=== PATIENT | female | born 1945 | race Caucasian/White ===

== ENCOUNTER → 2025-08-15 09:54 | Outpatient (CLI) | payer MEDICARE, SELFPAY ==
--- NOTE | ~2025-08-15 | XR_ITS ---
EXAMINATION: XR foot RT 2V, 08/15/2025 11:25 DEVELOPER PROGRAMMER HISTORY: M32.9 COMPARISON: No comparisons available. Findings: No acute fracture or malalignment. Moderate degenerative changes of the distal interphalangeal joints, no erosions are identified Soft tissues unremarkable. Impression: No acute fracture or malalignment. Reviewed, dictated and finalized at location P. LOPER PROGRAMMER Impression: No acute fracture or malalignment.
--- NOTE | ~2025-08-15 | XR_ITS ---
EXAMINATION: XR sacroiliac joints min 3V, 08/15/2025 11:00 CUSHION WORKER HISTORY: M32.9 COMPARISON: No comparisons available. Findings: No acute fracture or malalignment. Minimal sclerosis of the sacroiliac joints, no bridging osteophyte formation, no erosions identified Soft tissues unremarkable. Impression: No acute fracture or malalignment. Reviewed, dictated and finalized at location P. ION WORKER Impression: No acute fracture or malalignment.
--- NOTE | ~2025-08-15 | XR_ITS ---
XR lumbar spine min 4V Indication: M32.9 Comparison: None Findings: Levoconvex scoliosis. Moderate loss of vertebral height throughout. No acute fracture or subluxation. There is severe loss of disc height throughout. Soft tissues unremarkable Impression: No acute abnormality. Reviewed, dictated and finalized at location P. ASS WASHER Impression: No acute abnormality.
--- NOTE | ~2025-08-15 | XR_ITS ---
EXAMINATION: XR hand LT 2V, 08/15/2025 11:35 FEED ELEVATOR WORKER HISTORY: M32.9 COMPARISON: No comparisons available. Findings: No acute fracture or malalignment. Severe degenerative changes of the distal interphalangeal joints and first metacarpal carpal joint, no erosions are identified Soft tissues unremarkable. Impression: No acute fracture or malalignment. Reviewed, dictated and finalized at location P. ELEVATOR WORKER Impression: No acute fracture or malalignment.
--- NOTE | ~2025-08-15 | XR_ITS ---
EXAMINATION: XR hand RT 2V, 08/15/2025 11:35 DIABETES CLINICAL MANAGER HISTORY: M32.9 COMPARISON: No comparisons available. Findings: No acute fracture or malalignment. Severe degenerative changes of the distal interphalangeal joints and the first metacarpal carpal joint, no erosions are identified. Soft tissues unremarkable. Impression: No acute fracture or malalignment. Reviewed, dictated and finalized at location P. ETES CLINICAL MANAGER Impression: No acute fracture or malalignment.
--- NOTE | ~2025-08-15 | XR_ITS ---
EXAMINATION: XR foot LT 2V, 08/15/2025 11:15 HYDRAULIC ROCKBREAKER OPERATOR HISTORY: SYSTEMIC LUPUS ERYTHEMATOSUS, UNSPECIFIED. COMPARISON: No comparisons available. Findings: Fixation of the fifth metatarsal, no acute fracture is identified Moderate degenerative changes of the distal interphalangeal joints, no erosions. Soft tissues unremarkable. Impression: No acute fracture or malalignment. Reviewed, dictated and finalized at location P. AULIC ROCKBREAKER OPERATOR Impression: No acute fracture or malalignment.
== END ==
PROVIDERS: PCP Internal Medicine; Visit Provider Internal Medicine
DX: M32.9 Systemic lupus erythematosus, unspecified (principal)
CPT/HCPCS: 72110; 72202; 73120; 73620